=== PATIENT | female | born 1990 | race Caucasian/White ===

== ENCOUNTER 2018-06-11 10:31 | Emergency (ER) | payer OTHER ==
--- NOTE | 2018-06-11 12:02 | UC ---
[facility] HPI - HPI Summary HPI Summary: ONSET YESTERDAY OF RIGHT LOWER DENTAL PAIN. PATIENT REPORTS SHE HAD HER WISDOM TOOTH PULLED MANY YEARS AGO AND SINCE THEN HAS HAD INTERMITTENT RECURRENT EPISODES OF RIGHT LOWER DENTAL PAIN. HAS NOT HAD DENTAL INSURANCE SO HAS NOT HAD THIS PROPERLY EVALUATED. DENIES FEVER. COMES IN WITH SOME MILD RIGHT FACIAL SWELLING. IBUPROFEN HELPS WITH DISCOMFORT. - History of Current Complaint Chief Complaint: UCDentalProblem Stated Complaint: TOOTHPAIN, HEADACHE Time Seen by Provider: 06/11/18 11:22 Hx Obtained From: Patient Hx Last Menstrual Period: iud Onset/Duration: Gradual Onset, Lasting Days - 1 DAY, Still Present Severity: Moderate Pain Intensity: 9 Pain Scale Used: 0-10 Numeric Aggravating Factor(s): Heat, Cold, Chewing Alleviating Factor(s): OTC Meds - IBUPROFEN - Allergies/Home Medications Allergies/Adverse Reactions: Allergies Allergy/AdvReac Type Severity Reaction Status Date / Time No Known Allergies Allergy Verified 06/11/18 10:56 Home Medications: Home Medications Flonase NASAL SPRAY 50MCG* 50 mg ALT NARE DAILY 06/11/18 [History Confirmed ] PMH/Surg Hx/FS Hx/Imm Hx Other GI/ History: IBS - Family History Known Family History: Positive: Non-Contributory - Social History Alcohol Use: Weekly Substance Use Type: None Smoking Status (MU): Never Smoked Tobacco Review of Systems All Other Systems Reviewed And Are Negative: Yes Constitutional: Positive: Negative ENT: Positive: Dental Pain Respiratory: Positive: Negative Cardiovascular: Positive: Negative Gastrointestinal: Positive: Negative Neurological: Positive: Negative Physical Exam Triage Information Reviewed: Yes Appearance: Well-Appearing, Well-Nourished, Pain Distress - MILD, Other: - MILD SWELLING ANGLE RIGHT MANDIBLE Vital Signs: Initial Vital Signs Temp 98 F 06/11/18 10:52 Pulse 100 06/11/18 10:52 Resp 20 06/11/18 10:52 BP 136/85 06/11/18 10:52 Pulse Ox 100 06/11/18 10:52 Vital Signs Reviewed: Yes Eyes: Positive: Conjunctiva Clear ENT: Positive: Hearing grossly normal, Pharynx normal Dental: Positive: Percussion Tenderness @ - #31 (RIGHT LOWER 2ND MOLAR) Neck: Positive: Supple, Nontender, No Lymphadenopathy Respiratory: Positive: Normal breath sounds, No respiratory distress Cardiovascular: Positive: Pulses Normal Abdomen Description: Positive: Soft Musculoskeletal: Positive: ROM Intact Neurological: Positive: Alert Psychological: Positive: Age Appropriate Behavior Skin: Negative: Rashes Dental Complaint Course/Dx - Differential Dx/Diagnosis Provider Diagnoses: TOOTHACHE #31 Discharge - Sign-Out/Discharge Documenting (check all that apply): Patient Departure All imaging exams completed and their final reports reviewed: No Studies - Discharge Plan Condition: Stable Disposition: HOME Prescriptions: Amoxicillin/Clavulanate TAB* [Augmentin TAB 875*] 875 mg PO BID #20 tab Chlorhexidine MW 0.12% 473ML* [Peridex Mouth Wash 0.12%*] 15 ml SWISH SPIT BID # 1 bottle Patient Education Materials: Toothache (ED) Referrals: No Primary Care Phys,NOPCP [Primary Care Provider] - Additional Instructions: Call your dentist ALEJANDRO for further evaluation and management of your recurrent, intermittent right lower dental discomfort and swelling. - Billing Disposition and Condition Condition: STABLE Disposition: Home
== END 2018-06-11 11:42 | disposition home or self-care (01) ==
LOC: UCEAST 10:31
DX: K08.89 Other specified disorders of teeth and supporting structures (principal)
CPT/HCPCS: 99202; G0463